=== PATIENT | female | born 1980 | race Hispanic/Latino ===

== ENCOUNTER 2023-05-16 04:00 | Emergency (ER) | payer SELFPAY ==
[2023-05-16] MEDS ORDERED: IPRATROPIUM BROM 0.5MG/2.5ML ONE (04:11)
[2023-05-16] MEDS ORDERED: ALBUTEROL 2.5 MG/3 ML NEB SOL ONE (04:11)
[2023-05-16] MEDS ORDERED: predniSONE 20 MG TAB ONE (04:12)
--- NOTE | 2023-05-16 04:54 | ER ---
Nurse's Notes [facility] Name: Jacinta Juan Age: 42 yrs Sex: Female : 1980 Arrival Date: 05/16/2023 Time: 04:00 Bed 4 Private MD: Diagnosis: Unspecified asthma, uncomplicated Presentation: 05/15 04:09 Chief complaint: Patient states: Started having an asthma attack about 30 min MEAL ROOM HAND. vc1 Coronavirus screen: At this time, the client does not indicate any symptoms associated with coronavirus-19. Ebola Screen: Patient negative for fever greater than or equal to 101.5 degrees Fahrenheit, and additional compatible Ebola Virus Disease symptoms Patient denies exposure to infectious person. Patient denies travel to an Ebola-affected area in the 21 days before illness onset. No symptoms or risks identified at this time. Risk Assessment: Do you want to hurt yourself or someone else? Patient reports no desire to harm self or others. Onset of symptoms was May 16, 2023 at 03:30. 04:09 Method Of Arrival: Ambulatory vc1 04:09 Acuity: JOSE 3 vc1 04:21 Initial Sepsis Screen: Does the patient meet any 2 criteria? No. Patient's initial vc1 sepsis screen is negative. Does the patient have a suspected source of infection? No. Patient's initial sepsis screen is negative. Triage Assessment: 04:16 General: Appears distressed, uncomfortable, Behavior is calm, cooperative, appropriate vc1 for age. Pain: Denies pain. EENT: No deficits noted. No signs and/or symptoms were reported regarding the EENT system. Neuro: Level of Consciousness is awake, alert, obeys commands, Oriented to person, place, time, situation, Appropriate for age. Cardiovascular: No deficits noted. Respiratory: Reports shortness of breath Airway is patent Respiratory effort is even, Respiratory pattern is symmetrical, tachypnea Breath sounds with wheezes in right posterior upper lobe, right posterior middle lobe and right posterior lower lobe. 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 - Infectious Disease History:: Denies. - Social history:: Smoking status: Patient reports the use of cigarette tobacco products, denies chronic smoking, but will smoke occasionally. - Family history:: not pertinent. Screenin:18 [facility] ED Fall Risk Assessment (Adult) History of falling in the last 3 months, vc1 including since admission No falls in past 3 months (0 pts) Confusion or Disorientation No (0 pts) Intoxicated or Sedated No (0 pts) Impaired Gait No (0 pts) Mobility Assist Device Used No (0 pt) Altered Elimination No (0 pt) Score/Fall Risk Level 0 - 2 = Low Risk Oriented to surroundings, Maintained a safe environment, Educated pt \T\ family on fall prevention, incl call for assistance when getting out of bed. Abuse screen: Denies threats or abuse. Nutritional screening: No deficits noted. Tuberculosis screening: No symptoms or risk factors identified. Assessment: 04:15 General: Appears distressed, uncomfortable, Behavior is calm, cooperative. jw7 04:15 Pain: Denies pain. Neuro: Level of Consciousness is awake, alert, obeys commands, jw7 Oriented to person, place, time, situation. Cardiovascular: Heart tones S1 S2 present Capillary refill < 3 seconds Clubbing of nail beds is absent JVD is absent Patient's skin is warm and dry. Respiratory: Airway is patent Trachea midline Respiratory effort is even, labored, Respiratory pattern is regular, symmetrical, tachypnea Breath sounds with wheezes in right posterior lower lobe and right posterior middle lobe and right posterior upper lobe. GI: No deficits noted. No signs and/or symptoms were reported involving the gastrointestinal system. : No deficits noted. No signs and/or symptoms were reported regarding the genitourinary system. EENT: No deficits noted. No signs and/or symptoms were reported regarding the EENT system. Derm: Skin is intact, is healthy with good turgor, Skin is dry, Skin is normal, Skin temperature is warm. Musculoskeletal: Circulation, motion, and sensation intact. Range of motion: intact in all extremities. 05:10 Reassessment: Patient appears in no apparent distress at this time. Patient and/or jw7 family updated on plan of care and expected duration. Pain level reassessed. Patient is alert, oriented x 3, equal unlabored respirations, skin warm/dry/pink. Patient states feeling better. Patient states symptoms have improved. Vital Signs: 04:18 BP 124 / 87; Pulse 81; Resp 22; Temp 97; Pulse Ox 97% ; Weight 58.97 kg; Height 5 ft. 4 vc1 in. ; Pain 0/10; 04:21 Pain 0/10; vc1 05:05 BP 117 / 75; Pulse 80; Resp 17 S; Pulse Ox 100% on Nebulizer Mask; jw7 04:18 Body Mass Index 22.31 (58.97 kg, 162.56 cm) vc1 04:18 Pain Scale: Adult vc1 04:21 Pain Scale: Adult vc1 ED Course: 04:07 Patient arrived in ED. rv1 04:07 Christiano Solorio MD is Attending Physician. rt 04:11 Triage completed. vc1 04:11 Arm band placed on right wrist. vc1 04:15 Provided Education on: Use of Call Light. jw7 04:22 Patient has correct armband on for positive identification. Bed in low position. Call vc1 light in reach. Pulse ox on. NIBP on. 05:11 No provider procedures requiring assistance completed. Patient did not have IV access jw7 during this emergency room visit. Administered Medications: 04:18 Drug: predniSONE PO 40 mg PO once Route: PO; jw7 05:12 Follow up: Response: No adverse reaction jw7 04:18 Drug: DuoNeb Nebulize (3:1) (2.5 mg - 0.5 mg) 3 ml Nebulizer once Route: Nebulizer; jw7 05:12 Follow up: Response: No adverse reaction; Marked relief of symptoms; Wheezing diminishedjw7 Medication: 04:22 VIS not applicable for this client. vc1 Outcome: 04:54 Discharge ordered by . rt 05:11 Discharged to home ambulatory, jw7 05:11 Condition: stable 05:11 Discharge instructions given to patient, Instructed on discharge instructions, follow up and referral plans. medication usage, Demonstrated understanding of instructions, follow-up care, medications, Prescriptions given X 2, 05:12 Patient left the ED. jw7 Signatures: Millie Price RN RN vc1 Tonia Marks RN RN jw7 Christiano Solorio MD MD rt Raquel Kong rv1 Corrections: (The following items were deleted from the chart) 04:16 04:14 PMHx: None; vc1 vc1
--- NOTE | 2023-05-16 04:54 | EDPHYS ---
Physician Documentation [facility] Name: Jacinta Juan Age: 42 yrs Sex: Female : 1980 Arrival Date: 05/16/2023 Time: 04:00 Bed 4 Private MD: ED Physician Christiano Solorio HPI: 05/15 04:22 This 42 yrs old Female presents to ER via Ambulatory with complaints of rt Dyspnea. 04:23 Patient with history of asthma presents to the ED with shortness of breath, wheezing rt starting tonight. He is consistent with prior episodes of asthma. Denies other acute complaints at this time, symptoms are mild in severity, no other aggravating or alleviating factors.. 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 - Infectious Disease History:: Denies. - Social history:: Smoking status: Patient reports the use of cigarette tobacco products, denies chronic smoking, but will smoke occasionally. - Family history:: not pertinent. ROS: 04:23 Constitutional: Negative for fever, chills, and weight loss, Cardiovascular: Negative rt for chest pain, palpitations, and edema, Abdomen/GI: Negative for abdominal pain, nausea, vomiting, diarrhea, and constipation, MS/Extremity: Negative for injury and deformity, Skin: Negative for injury, rash, and discoloration, Neuro: Negative for headache, weakness, numbness, tingling, and seizure, 04:23 Respiratory: Positive for cough, shortness of breath, wheezing, Exam: 04:23 Constitutional: This is a well developed, well nourished patient who is awake, alert, rt and in no acute distress. Head/Face: Normocephalic, atraumatic. Chest/axilla: Normal chest wall appearance and motion. Nontender with no deformity. No lesions are appreciated. Cardiovascular: Regular rate and rhythm with a normal S1 and S2. No gallops, murmurs, or rubs. Normal PMI, no JVD. No pulse deficits. Abdomen/GI: Soft, non-tender, with normal bowel sounds. No distension or tympany. No guarding or rebound. No evidence of tenderness throughout. MS/ Extremity: Pulses equal, no cyanosis. Neurovascular intact. Full, normal range of motion. Neuro: Awake and alert, GCS 15, oriented to person, place, time, and situation. Cranial nerves II-XII grossly intact. Motor strength 5/5 in all extremities. Sensory grossly intact. Cerebellar exam normal. Normal gait. 04:23 Respiratory: Faint wheezes heard on montero, no respiratory distress, Vital Signs: 04:18 BP 124 / 87; Pulse 81; Resp 22; Temp 97; Pulse Ox 97% ; Weight 58.97 kg; Height 5 ft. 4 vc1 in. ; Pain 0/10; 04:21 Pain 0/10; vc1 05:05 BP 117 / 75; Pulse 80; Resp 17 S; Pulse Ox 100% on Nebulizer Mask; jw7 04:18 Body Mass Index 22.31 (58.97 kg, 162.56 cm) vc1 04:18 Pain Scale: Adult vc1 04:21 Pain Scale: Adult vc1 MDM: 04:07 Patient medically screened. rt 05:47 Differential Diagnosis Asthma exacerbation. Data reviewed: vital signs, nurses notes. rt Test considered but Not performed: X-ray: Patient states that she did not wish to have x-ray performed at this time, lungs have no crackles, only faint wheezing. Believe this is reasonable.. Care significantly affected by the following chronic conditions: Asthma. Counseling: I had a detailed discussion with the patient and/or guardian regarding the historical points, exam findings, and any diagnostic results supporting the discharge/admit diagnosis, the need for outpatient follow up, to return to the emergency department if symptoms worsen or persist or if there are any questions or concerns that arise at home. Response to treatment: the patient's symptoms have markedly improved after treatment. Administered Medications: 04:18 Drug: predniSONE PO 40 mg PO once Route: PO; jw7 05:12 Follow up: Response: No adverse reaction jw7 04:18 Drug: DuoNeb Nebulize (3:1) (2.5 mg - 0.5 mg) 3 ml Nebulizer once Route: Nebulizer; jw7 05:12 Follow up: Response: No adverse reaction; Marked relief of symptoms; Wheezing diminishedjw7 Disposition Summary: 05/16/23 04:54 Discharge Ordered Notes: Location: Home rt Problem: an acute exacerbation rt Symptoms: have improved rt Condition: Stable rt Diagnosis - Unspecified asthma, uncomplicated rt Followup: rt - With: Private Physician - When: 2 - 3 days - Reason: Discharge Instructions: - Discharge Summary Sheet rt - Asthma, Adult rt Forms: - Medication Reconciliation Form rt - Thank You Letter rt - Antibiotic Education rt - Prescription Opioid Use rt - Patient Portal Instructions rt - Leadership Thank You Letter rt Prescriptions: - albuterol sulfate 90 mcg/actuation Inhalation HFA Aerosol Inhaler - inhale 2 puff INHALATION route every 4 to 6 hours as needed for bronchospasm; 2 rt Each; Refills: 0, Product Selection Permitted - Prednisone 20 mg Oral tablet - take 2 tablets ORAL route once daily for 4 days; 8 tablet; Refills: 0, Product rt Selection Permitted Signatures: Millie Price RN RN vc1 Tonia Marks RN RN jw7 Christiano Solorio MD MD rt Corrections: (The following items were deleted from the chart) 04:16 04:14 PMHx: None; vc1 vc1
[2023-05-16 11:15] VITALS: BP 117/75; TEMP 97; O2SAT 100
== END 2023-05-16 05:12 | disposition home or self-care (01) ==
LOC: ER 04:00
DX: J45.909 Unspecified asthma, uncomplicated (principal)
CPT/HCPCS: 94640; 99284; J7512; J7613; J7644